=== PATIENT | male | born 1985 | race Caucasian/White ===

== ENCOUNTER → 2021-04-30 | Outpatient (REF) | payer OTHER | LOC: M LAB REF 11:12 | PROVIDERS: ATTEND Physician Assistant Medical | DX: J03.90 Acute tonsillitis, unspecified (principal) ==

== ENCOUNTER 2021-07-28 01:03 | Emergency (ER) | payer OTHER ==
[~2021-07-28] VITALS: Ht 185.4 cm; Wt 100.1 kg
[2021-07-28] MEDS ORDERED: ADDE10CA3 PO (01:18)
[2021-07-28] MEDS ORDERED: OMEP40CA4 PO (01:18)
[2021-07-28] MEDS ORDERED: CELE50CA PO (01:18)
--- NOTE | 2021-07-28 16:59 | ECGEPIP ---
[facility] - ED Test Date: 2021-07-28 Pat Name: NAV ROOT Department: Room: - Gender: Male Manufacturing Systems Engineer: PRISCILLA : 1985 Requested By: KARLIE Abraham Order Number: [id number] Reading MD: Mariela Rangel Measurements Intervals [place] Rate: 50 P: 46 WI: 162 QRS: 10 QRSD: 98 T: 11 QT: 426 QTc: 388 Interpretive Statements Sinus bradycardia No prior Electronically Signed on 07-28-2021 16:58:44 EST by Mariela Rangel
== END 2021-07-28 01:55 | disposition left against medical advice (07) ==
LOC: M ED 01:03
DX: Z53.21 Procedure and treatment not carried out due to patient leaving prior to being seen by health care provider (principal)